=== PATIENT | female | born 1980 | race Caucasian/White ===

== ENCOUNTER 2018-03-20 20:33 | Emergency (ER) | payer BC ==
[~2018-03-20] VITALS: Ht 170.2 cm; Wt 97.5 kg
[2018-03-20 20:50] VITALS: BP 139/87
--- NOTE | 2018-03-20 21:36 | ED.ADGEN ---
Past History Past Medical History: Anxiety, GERD, Hypothyroid Past Surgical History: Other Alcohol Use: None Drug Use: None Adult General Chief Complaint Chief Complaint ".. I ve had neck and back problems before.. but I tripped on a toy.. and wrenched my neck.. now I cant get the spasm to relieve..." HPI HPI Patient is a 37 year old female who presents with above hx and complaints of Lt sided neck spasm after tripping on toy. Pt. hx prior lower spinal injury and chronic pain. Pt. does have spinal stimulatory. Pt. denies any problems of fever, chills, cancer, depression. Does have some midline tenderness but pain appears to be primary localized in the left trapezius and paraspinal muscles in the cervical area. Patient has under range of motion because of muscle spasms and neck. No other injuries reported. No probles with defecation or urination. Organ Teacher equal. DTR + 2 at patella and brachial. Movements are guarded because of severe neck spasms. Review of Systems Review of Systems Constitutional: Denies fever or chills [] Eyes: Denies change in visual acuity, redness, or eye pain [] HENT: Denies nasal congestion or sore throat [] Complaints of neck muscle spasm. Respiratory: Denies cough or shortness of breath [] Cardiovascular: No additional information not addressed in HPI [] GI: Denies abdominal pain, nausea, vomiting, bloody stools or diarrhea [] : Denies dysuria or hematuria [] Musculoskeletal: Chronic back pain Integument: Denies rash or skin lesions [ Neurologic: Denies headache, focal weakness or sensory changes [] Endocrine: Denies polyuria or polydipsia [] All other systems were reviewed and found to be within normal limits, except as documented in this note. Family History Family History Non-contributory Current Medications Current Medications Current Medications Medications (Trade) Dose Ordered Sig/Rocco Start Time Stop Time Status Last Admin Dose Admin Fentanyl Citrate (Fentanyl 2ml Vial) 50 mcg 1X ONCE 03/20/18 21:45 03/20/18 21:47 DC 03/20/18 21:58 50 MCG Ketorolac Tromethamine (Toradol) 60 mg 1X ONCE 03/20/18 21:45 03/20/18 21:47 DC 03/20/18 21:59 60 MG Lorazepam (Ativan) 2 mg 1X ONCE 03/20/18 21:45 03/20/18 21:48 DC 03/20/18 21:57 2 MG Methylprednisolone Acetate (DEPO-Medrol IM) 40 mg 1X ONCE 03/20/18 21:45 03/20/18 21:57 DC 03/20/18 22:10 40 MG Ondansetron HCl (Zofran Odt) 8 mg 1X ONCE 03/20/18 21:45 03/20/18 21:47 DC 03/20/18 21:56 8 MG Orphenadrine Citrate (Norflex) 60 mg 1X ONCE 03/20/18 21:45 03/20/18 21:47 DC 03/20/18 21:59 60 MG Allergies Allergies Allergies Coded Allergies Type Severity Reaction Last Updated Verified acetaminophen Allergy Intermediate Rash 03/20/18 Yes ciprofloxacin Allergy Intermediate Rash 03/20/18 Yes codeine Allergy Intermediate 03/20/18 Yes hydrocodone Allergy Intermediate Rash 03/20/18 Yes oxycodone Allergy Intermediate Rash 03/20/18 Yes Physical Exam Physical Exam Constitutional in acute distress, non-toxic appearance. [] HENT: Normocephalic, atraumatic, bilateral external ears normal, oropharynx moist, no oral exudates, nose normal. [] Eyes: PERRLA, EOMI, conjunctiva normal, no discharge. [] Neck: Limited l range of motion, Lt trapeizus and mid cervical tenderness, Lungs & Thorax: Bilateral breath sounds clear to auscultation [] Abdomen: Bowel sounds normal, soft, no tenderness, no masses, no pulsatile masses. [] Scar. Skin: Warm, dry, no erythema, no rash. [] Back: No tenderness, no CVA tenderness. [] Old surgical scar Extremities: No tenderness, no cyanosis, no clubbing, ROM intact, no edema. [] Neurologic: Alert and oriented X 3, normal motor function, normal sensory function, no focal deficits noted. [] Psychologic: Affect anxiousl, judgement normal, mood normal. [] Current Patient Data Vital Signs Vital Signs Date Time Temp Pulse Resp B/P (MAP) Pulse Ox O2 Delivery O2 Flow Rate FiO2 03/20/18 21:58 18 99 Room Air 03/20/18 20:50 98.5 101 EKG EKG [] Radiology/Procedures Radiology/Procedures CT shows DJD, no fx. or dislocation. Straightening of cervical . See formal report when available. [] Course & Med Decision Making Course & Med Decision Making Pertinent Labs and Imaging studies reviewed. (See chart for details). Ice packs 4 x day and as needed. Advance to moist warm packs after three days. Massage. Tramadol and flexeril as directed. Must follow up with primary. Return if any concerns. [] Final Impression Final Impression 1. Torticollis 2. Cervical Neck Spasms Dragon Disclaimer Dragon Disclaimer This electronic medical record was generated, in whole or in part, using a voice recognition dictation system. BILLY DESAI MD Mar 20, 2018 21:36
[2018-03-20] MEDS ORDERED: BUPR150T15 PO (21:39)
[2018-03-20] MEDS ORDERED: VENL150C PO (21:40)
[2018-03-20] MEDS ORDERED: OMEP40CA5 PO (21:42)
[2018-03-20] MEDS ORDERED: LEVO75TA PO (21:42)
[2018-03-20] MEDS ORDERED: MEDR150D3 IM (21:43)
[2018-03-20] MEDS ORDERED: ORPHENADRINE CITRATE 60 MG/2 ML VIAL. IM ONE (21:45)
[2018-03-20] MEDS ORDERED: KETOROLAC 60 MG/2 ML VIAL. IM ONE (21:45)
[2018-03-20] MEDS ORDERED: ONDANSETRON ODT 4 MG TAB.RAPDIS PO ONE (21:45)
[2018-03-20] MEDS ORDERED: methylPREDNISolone ACETATE 40 MG/ML VIAL. IM ONE (21:45)
[2018-03-20] MEDS ORDERED: LORazepam 1 MG TABLET PO ONE (21:45)
--- NOTE | 2018-03-20 23:21 | RAD ---
CT scan of the cervical spine without contrast 03/20/2018 Clinical history: Fall with neck injury. Technique: Unenhanced, contiguous, 0.625 mm axial sections were obtained through the cervical spine. Axial, coronal and sagittal reconstructed images were obtained. One or more of the following individualized dose reduction techniques were utilized for this study: 1. Automated exposure control. 2. Adjustment of the mA and/or kV according to patient size. 3. Use of iterative reconstruction technique. Findings: Sagittal and coronal reconstructed images demonstrate mild straightening of the normal cervical lordosis. Mild lateral curvature of the cervical spine is seen convex to the left. No fracture or subluxation of the cervical vertebrae is seen. Impression: No fracture or subluxation of the cervical vertebra is identified. Electronically signed by: Erick Maciel MD (03/20/2018 11:17 PM) [facility]
[2018-03-20] MEDS ORDERED: TRAM50TA PO (23:54)
[2018-03-20] MEDS ORDERED: CYCL5TAB PO (23:54)
== END 2018-03-21 00:11 | disposition home or self-care (01) ==
LOC: ER 20:33
DX: M43.6 Torticollis (principal); G89.29 Other chronic pain; K21.9 Gastro-esophageal reflux disease without esophagitis; E03.9 Hypothyroidism, unspecified; F41.9 Anxiety disorder, unspecified; Z88.6 Allergy status to analgesic agent; Z88.5 Allergy status to narcotic agent; Z88.1 Allergy status to other antibiotic agents
CPT/HCPCS: 72125; 96372; 99284; J1030; J1885; J2360; J3010; Q0162